=== PATIENT | male | born 1950 | race Caucasian/White ===

== ENCOUNTER 2020-04-02 12:37 | Observation (INO) | payer MEDICARE, SELFPAY ==
[2020-04-02] VITALS (21 sets, daily range): BP systolic 85–125; BP diastolic 56–107; PULSE 92–145; RESP 13–20; TEMP 36.2–36.7; O2SAT 97–100; BMI 23.1
--- NOTE | ~2020-04-02 | XR_ITS ---
EXAMINATION: XR chest 2V EXAM DATE: 04/02/2020 13:26 INDICATION: Palpitations, lightheadedness. TECHNIQUE: Frontal and lateral projections of the chest obtained and reviewed. There is no prior jose f dy for comparison. FINDINGS: Moderate hyperinflation. The lungs are clear. There are no pleural effusions. The cardiom ediastinal silhouette is within normal limits. There is no pneumothorax suspected. Patient has diff use idiopathic skeletal hyperostosis (DISH). IMPRESSION: 1. No acute cardiopulmonary findings. 2. Hyperinflation. Reviewed, dictated and finalized at location A. L PUNCH PRESS OPERATOR
--- NOTE | 2020-04-02 12:41 | ECG_ITS ---
Measurements Intervals [place] Rate: 114 P: [place]: 0 QRS: 56 QRSD: 85 T: 9 QT: 309 QTc: 426 Interpretive Statements ATRIAL FIBRILLATION WITH RAPID VENTRICULAR RESPONSE BORDERLINE ST ABNORMALITY- INFERIOR LEADS ABNORMAL ECG Electronically Signed On 04-02-2020 12:57:37 LINK MACHINE OPERATOR by Reji Alberto D.O.
--- NOTE | 2020-04-02 13:08 | ED.ARRPALP ---
HPI - Arrhythmia/Palpitations General Chief Complaint: Arrhythmia/Palpitations Stated Complaint: Rapid heart rate Time Seen by Provider: 04/02/20 12:54 History of Present Illness HPI narrative: Patient is a 69-year-old male who presents ER with sudden onset rapid heart rate. Began about an hour prior to arrival. Associate with lightheadedness. Has had intermittent episodes of this over the last year. He sees Dr. Goldstein with cardiology. He has had a Holter monitor and other testing performed without diagnosis. He takes metoprolol 25 mg daily. No recent increase in caffeine or other stimulants. No chest pain or chest pressure. No shortness of breath. Found to be in A. fib with RVR and by EMS. Related Data Home Medications Medication Instructions Recorded Confirmed naproxen sodium 220 mg tablet 220 mg PO BID PRN 10/23/19 12/12/19 aspirin [Aspir-81] 81 mg PO DAILY 04/02/20 metoprolol succinate 25 mg PO DAILY 04/02/20 Allergies Allergy/AdvReac Type Severity Reaction Status Date / Time No Known Allergies Allergy Verified 04/02/20 15:33 Review of Systems Review of Systems: All systems reviewed & are unremarkable except as noted in HPI and below Constitutional: Constitutional: Denies chills, Denies fever(s) and Denies weakness ENT: Denies nasal congestion and Denies sore throat Cardiovascular: Cardiovascular: Denies chest pain, Reports rapid heart rate and Denies radiating jaw, neck or arm pain Respiratory: Respiratory: Denies cough, Denies dyspnea and Denies wheezing Gastrointestinal: Gastrointestinal: Denies nausea and Denies vomiting Neurologic: Reports dizziness, Denies focal weakness and Denies numbness PMFSH Past Medical History Medical History (Updated 04/02/20 @ 15:34 by Williams Perea MD) Palpitations Family History Family History Father Cerebrovascular accident Family history of atrial fibrillation Mother Family history of atrial fibrillation Social History Social History Smoking status: Light tobacco smoker Alcohol intake: current Gender identity (if verbalized by the patient): Male Exam Narrative: Exam Narrative: GENERAL: Well-appearing, well-nourished, and in no acute distress. HEAD: Normocephalic, atraumatic. Eyes: EOMI CHEST: Clear to auscultation. No respiratory distress. HEART: Tachycardic with a regular regular rate and rhythm. Normal peripheral pulses. ABDOMEN: Soft, nontender, nondistended EXTREMITIES: Normal range of motion. No edema. SKIN: Warm, dry, no rash. NEURO: Alert and oriented x3. PSYCH: Normal mood and affect. Course Reevaluation(s) Reevaluation #1: Discussed case with Dr. Figueroa including episodes of hypotension. Most recent episode after receiving his diltiazem seems to is resolved and he is gone back up to 107/87 mmHg with a heart rate of [address] Figueroa recommends one oral dose of metoprolol 25 mg tartrate given the fact that he takes 25 mg of metoprolol succinate daily. She also recommends that the patient receive some Lovenox in case he needs to be cardioverted. Date: 04/02/20 Time: 14:17 Vital Signs Vital signs: Vital Signs Temperature 98.0 F 04/02/20 12:41 Pulse Rate 128 H 04/02/20 12:41 Respiratory Rate 16 04/02/20 12:41 Blood Pressure 118/68 04/02/20 12:41 Pulse Oximetry 100 04/02/20 12:41 Temperature 98.0 F 04/02/20 12:41 Pulse Rate 108 H 04/02/20 15:18 Respiratory Rate 13 04/02/20 15:18 Blood Pressure 123/71 04/02/20 15:18 Pulse Oximetry 98 04/02/20 15:18 MDM - Arrhythmia/Palpitations Lab Data Result diagrams: 04/02/20 13:08 04/02/20 13:08 Labs: Lab Results 04/02/20 04/02/20 04/02/20 Range/Units 13:08 13:08 13:08 WBC 8.0 (4.5-10.0) K/mm3 RBC 4.78 (4.6-6.20) M/mm3 Hgb 15.4 (14.0-18.0) g/dL Hct 45.2 (42.0-52.0) %
[2020-04-02 13:14] LABS: Basophils Percent Auto 0.2 % (0.2-1.2); Eosinophils Absolute Auto 0.1 K/mm3 (0-0.3); Eosinophils Percent Auto 0.9 % (0-4.4); Hematocrit 45.2 % (42.0-52.0); Hemoglobin 15.4 g/dL (14.0-18.0); Immature Granulocyte Absolute 0.03 K/mm3 (0.00-0.031); Immature Granulocyte Percent A 0.4 % (0-0.5); Lymphocytes Absolute Auto 1.32 K/mm3 (0.9-3.2); Lymphocytes Percent Auto 16.5 % (18.3-44.2); Mean Corpuscular HGB Conc 34.1 g/dl (32-36); Mean Corpuscular Hemoglobin 32.2 pg (26-34); Mean Corpuscular Volume 94.6 fl (80-100); Mean Platelet Volume 8.5 fl (7.4-10.4); Monocytes Absolute Auto 0.7 K/mm3 (0.1-0.6); Monocytes Percent Auto 8.2 % (2.6-8.5); Neutrophils Absolute Auto 5.9 K/mm3 (1.3-6.7); Neutrophils Percent Auto 73.8 % (45.5-73.1); Platelet Count Result 194 k/mm3 (150-375); Red Blood Count 4.78 M/mm3 (4.6-6.20); Red Cell Distribution Width 12.9 % (11.5-14.5)
[2020-04-02 13:25] LABS: Prothrombin Time 13.6 Seconds (11.1-14.7)
[2020-04-02 13:26] LABS: Partial Thromboplastin Time 29.1 SECONDS (22.3-36.8)
--- NOTE | 2020-04-02 13:27 | PC.NURSE ---
PT TO XRAY VIA STRETCHER, WILL RE EVAL BP PRIOR TO GIVING RX'D DILTIAZEM DUE TO LOW BP READINGS. EDP AWARE.
[2020-04-02 13:28] LABS: Anion Gap 2 mmol/L (8-16); Blood Urea Nitrogen 23 mg/dL (9-20); Calcium 9.6 mg/dL (8.4-10.2); Carbon Dioxide 32 mmol/L (22-30); Chloride 107 mmol/L (98-107); Estimated CRCL calculation 86 ml/min; Estimated Glomerular Filt Rate > 60; Glucose 106 mg/dL (75-110); Potassium 4.6 mmol/L (3.4-5.0); Sodium 141 mmol/L (137-145)
[2020-04-02] MEDS: dilTIAZem HCl INJ 25 MG/5 ML VIAL 10 MG IV PUSH (13:36)
[2020-04-02 13:53] LABS: Glucose Point of Care 102 (65-105)
[2020-04-02] MEDS: SODIUM CHLORIDE 0.9% IV 1,000 ML 999 ML IV CONT (14:07)
[2020-04-02] MEDS: METOPROLOL TARTRATE 25 MG TABLET PO (14:27)
[2020-04-02] MEDS: ENOXAPARIN 100 MG/ML SYRINGE 90 MG SUB-Q (14:27)
--- NOTE | 2020-04-02 14:34 | PC.NURSE ---
CALLED DIETARY AND ORDERED TRAY FOR PT AT THIS TIME, SPOKE TO JACK.
--- NOTE | 2020-04-02 15:38 | ADMGEN ---
This patient, Chidi Silverio, was admitted to IMU Room 202-. Patient/family oriented to hospital policies and general routines including ID bracelet, bed and alarms, visiting hours, pain management, procedures, bathroom and other care routines, personal items, smoking policy, room service/diet, and visiting hours. Information on how to activate the Rapid Response Team has been discussed. Patient/Family are encouraged to report perceived risks to care and to ask questions if they do not understand what they are told or what they should do.
--- NOTE | 2020-04-02 17:10 | PM.IMHP ---
H&P: HPI History of Present Illness Date/Time: 04/02/20 17:10 Chief Complaint: Presyncope, new onset atrial fibrillation RVR Narrative: Chidi Silverio is a 69 year old male followed by Dr. Goldstein with a history of syncope. He was admitted for AFib RVR. Mr. Silverio (pronouned Leona Ronquillo') has a history of 4 or 5 episodes of syncope and near syncope over the past few years. Echo showed normal LV function EF 61% with diastolic dysfunction. Thirty day monitoring showed an 8 beat run of SVT and a 7 beat run of ventricular tachycardia with rare APCs and PVCs. The stress echo was negative. He was just seen this morning by our nurse practitioner feeling well and, after discussion with Dr. Goldstein, recommended referral to EP doctor to assess the ventricular tachycardia. Later the patient suddenly became lightheaded, sweaty, his head felt heavy and he had dimness of vision and blurred vision. He did not feel any palpitations, chest pain or shortness of breath. However his Apple Watch that his heart rate was 173. He called an ambulance and on their arrival his blood pressure was 80/40 with a heart rate ranging 112-151 beats per minute. O2 sat was in the 90s. He was given a dose of IV diltiazem 10 mg in the ER but dropped his blood pressure in to the 80s again. He also had a small vagal episode when he had phlebotomy. (He reports that he always he is lightheaded and dizzy when he has his blood drawn.) He was given a Liter of IV fluids and a dose of metoprolol 25 mg p.o. as well as a dose of Lovenox. He reports he is feeling fine now at rest. The patient denies any history of bleeding or ulcers. He denies any sleep apnea or snoring. He drinks 2 alcoholic beverages a night. No thyroid disease. This presentation is similar to his prior episodes except he did not pass out with this 1 and it is lasting longer. Review of Systems Constitutional: Constitutional: Reports weakness ENT: Denies epistaxis and Denies nasal congestion Cardiovascular: Cardiovascular: Denies chest pain, Reports diaphoresis, Denies pedal edema, Reports lightheadedness and Denies palpitations Respiratory: Respiratory: Denies cough, Denies hemoptysis, Denies dyspnea and Denies wheezing Gastrointestinal: Gastrointestinal: Denies abdominal pain, Denies melena and Denies hematochezia Genitourinary: Genitourinary: Denies hematuria Musculoskeletal: Musculoskeletal: Reports arthralgias (Knee arthritis) Integumentary/Breasts: Skin/Breast: Denies dry skin Neurologic: Denies Abnormal speech present and Denies confusion Psychiatric: Psychiatric: Denies behavioral changes [facility] Past Medical History Medical History Palpitations Family History Family History (Updated 04/02/20 @ 17:27 by Sofy Figueroa MD) Father Cerebrovascular accident Family history of atrial fibrillation Natural of natural causes age 91. 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 , has 3 kids and 9 grandkids. One daughter is a nurse practitioner. Smoking status: Smoker, status unknown Tobacco type: cigars Alcohol intake: current Drinks per week: 8 Substance use: never Gender identity (if verbalized by the patient): Male Spiritual care concerns: No Meds Home Medications and Allergies Home Medications Medication Instructions Recorded Confirmed Type naproxen sodium 220 mg tablet 220 mg PO DAILY PRN 10/23/19 04/02/20 History aspirin [Aspir-81] 81 mg PO DAILY 04/02/20 04/02/20 History met
[2020-04-02] MEDS: METOPROLOL TARTRATE INJ 5 MG/5 ML VIAL IV PUSH (17:43)
[2020-04-02] MEDS: RIVAROXABAN 2.5 MG TABLET 5 MG PO (21:14)
[2020-04-02] MEDS: METOPROLOL TARTRATE 50 MG TAB PO (21:42)
[2020-04-03] VITALS (18 sets, daily range): BP systolic 85–121; BP diastolic 59–95; PULSE 54–138; RESP 10–21; TEMP 35.8–36.7; O2SAT 97–100
--- NOTE | 2020-04-03 | ECG_ITS ---
Measurements Intervals [place] Rate: 52 P: 44 [place]: 174 QRS: 47 QRSD: 87 T: 28 QT: 445 QTc: 414 Interpretive Statements SINUS BRADYCARDIA BORDERLINE ECG Electronically Signed On 04-04-2020 12:24:14 METAL MODEL MAKER by Reji Alberto D.O.
[2020-04-03] MEDS: METOPROLOL TARTRATE 50 MG TAB PO (09:26)
[2020-04-03] MEDS: RIVAROXABAN 2.5 MG TABLET 5 MG PO (09:26)
--- NOTE | 2020-04-03 11:38 | PC.NURSE ---
pt transferred to Chest pain center- for procedure - pt to remain in [facility] room 1 after procedure report given to Boris BELLO- transferred via bed - personal belongings with pt
--- NOTE | 2020-04-03 12:38 | WPDHPUPDATE1 ---
History and Physical Update Update Date/Time: 04/03/20 12:38 History and Physical has been reviewed, including an updated exam of the patient. Patient remains in atrial fibrillation; There are NO changes in the patient's condition. Risks, benefits, and alternatives have been discussed and questions answered. Risks of post cardioversion bradycardia/pauses and conscious sedation were reviewed. Patient agrees to proceed with procedure.
--- NOTE | 2020-04-03 12:39 | WPDMODSED ---
Moderate Sedation Note-Pt Data Patient Data Diagnosis: AFib RVR Present Complaint: Symptomatic atrial fibrillation which started yesterday, on anticoagulation Procedure to be performed/Plan: Conscious sedation and elective electrical cardioversion Allergies Allergy/AdvReac Type Severity Reaction Status Date / Time No Known Allergies Allergy Verified 04/02/20 15:33 Home Medications Medication Instructions Recorded Confirmed Type naproxen sodium 220 mg tablet 220 mg PO DAILY PRN 10/23/19 04/02/20 History aspirin [Aspir-81] 81 mg PO DAILY 04/02/20 04/02/20 History metoprolol succinate 25 mg PO Q12H 04/02/20 04/02/20 History Current Medications: Active Medications Acetaminophen (Acetaminophen 325 Mg Tablet) 650 mg PO Q4H PRN PRN Reason: Mild Pain (1-3) or Fever Hydrocodone Bitart/Acetaminophen (Hydrocodone/Acetaminophen (*Crx) 5-325 Mg Tablet) 1 tab PO Q4H PRN PRN Reason: Pain Rated 4-6 Al Hydrox/Mg Hydrox/Simethicone (Mag Hydrox/Al Hydrox/Simeth 30 Ml Udc) 30 ml PO QID PRN PRN Reason: Dyspepsia Metoprolol Tartrate (Metoprolol Tartrate Inj 5 Mg/5 Ml Vial) 5 mg IV PUSH Q4H PRN PRN Reason: Tachycardia Last Admin: 04/02/20 17:43 Dose: 5 mg Documented by: Metoprolol Tartrate (Metoprolol Tartrate 50 Mg Tab) 50 mg PO Q12HR [facility] Last Admin: 04/03/20 09:26 Dose: 50 mg Documented by: Morphine Sulfate (Morphine Sulfate (*Crx) 4 Mg/Ml Inj) 4 mg IV PUSH Q2H PRN PRN Reason: Pain Rated 7-10 Ondansetron HCl (Ondansetron Inj 4 Mg/2 Ml Vial) 4 mg IV PUSH Q4H PRN PRN Reason: Nausea Rivaroxaban (Rivaroxaban 2.5 Mg Tablet) 5 mg PO Q12HR [facility] Last Admin: 04/03/20 09:26 Dose: 5 mg Documented by: Sedation/Anesthesia: No previous sedation/anesthesia problems (including family history). [facility] Past Medical History Medical History Nonsustained ventricular tachycardia Palpitations Vasovagal episode Family History Family History Father Cerebrovascular accident Family history of atrial fibrillation Natural of natural causes age 91. 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 , has 3 kids and 9 grandkids. One daughter is a nurse practitioner. Smoking status: Smoker, status unknown Tobacco type: cigars Alcohol intake: current Drinks per week: 8 Substance use: never Gender identity (if verbalized by the patient): Male Spiritual care concerns: No Mod Sed Physical Exam Physical Exam Pre Procedural Exam: Normal: Appearance, Eyes, Ears, Nose, Neck, Throat, Airway, Lungs, Heart Size, Neuro Exam, Abdomen, Extremities and Skin and Variation: Heart Rate (Tachycardic) and Heart Rhythm (Irregular) Hours since solid foods: 12 Hours since liquid intake: 12 Internal Medicine - PN: Obj Da Vital Signs Vital Signs: Vital Signs - 24 hr 04/02/20 12:41 04/02/20 13:00 04/02/20 13:36 Temperature 98.0 F Pulse Rate 128 H 125 H Respiratory Rate 16 16 Blood Pressure 118/68 86/67 L 125/85 Pulse Oximetry 100 99 04/02/20 13:48 04/02/20 14:00 04/02/20 14:10 Temperature Pulse Rate 111 H Respiratory Rate 15 Blood Pressure 123/107 H 85/56 L 106/71 Pulse Oximetry 98 04/02/20 14:26 04/02/20 14:27 04/02/20 14:30 Temperature Pulse Rate 92 106 H Respiratory Rate 17 Blood Pressure 107/87 120/58 L Pulse Oximetry 100 04/02/20 14:50 04/02/20 15:18 04/02/20 15:39 Temperature 97.2 F L Pulse Rate 108 H 125 H Respiratory Rate 13 20 Blood Pressure 125/73 123/71 122/84 Pulse Oximetry 98 100 04/02/20 16:00 04/02/20 17:36 04/02/20 17:43 Temp
--- NOTE | 2020-04-03 13:24 | PM.OP ---
Procedure Note - Brief Procedure Note - Brief Date of procedure: 04/03/20 Pre-op diagnosis: afib rvr Post-op diagnosis: same Procedure performed: Conscious sedation and elective electrical cardioversion Description of procedure: Successful cardioversion to sinus bradycardia rate 55. Anesthesia: other (Conscious sedation) Surgeon: Sofy Figueroa MD Findings: Sinus bradycardia
--- NOTE | 2020-04-03 13:25 | PM.PROC ---
Procedure Note - Detailed Date of procedure: 04/03/20 Pre-op diagnosis: afib rvr Post-op diagnosis: same Procedure performed: Conscious sedation and elective electrical cardioversion Description of procedure: Conscious sedation: Assessment: The patient has no history of anesthesia problems. The patient's oropharynx is clear. The patient was deemed to be a good candidate for conscious sedation. The patient had continuous hemodynamic monitoring during the procedure. Start time: 13 11 Completion time: 13 17 Total conscious sedation time: 16 minutes Medications: Versed 2 mg, fentanyl 100 mcg IV push Trained observer: Nicolette Castillo Outcome: The patient tolerated the procedure well with no complications. Cardioversion: After informed consent and the above conscious sedation, the patient underwent elective electrical synchronized cardioversion with 150 joules of biphasic energy and converted to normal sinus rhythm rate in 50's. There were no complications. Plan: Discharge w/ anticoagulation. Continue usual dose of metoprolol 25 mg b.i.d. and add flecainide 50 mg b.i.d. to help maintain sinus rhythm. EKG in 1 week, follow up in the office in 6 weeks. Surgeon: Sofy Figueroa MD
--- NOTE | 2020-04-03 13:29 | PM.PROC ---
Procedure Note - Detailed Date of procedure: 04/03/20 Pre-op diagnosis: afib rvr Surgeon: Sofy Figueroa MD
--- NOTE | 2020-04-03 14:08 | PM.DS ---
DS: Admitting Diagnosis Admitting Diagnosis Admitting Diagnosis: Atrial fibrillation with a rapid ventricular response Lightheadedness DS: Discharge Diagnosis Discharge Diagnosis (1) Atrial fibrillation with RVR: Code(s): I48.91 - Unspecified atrial fibrillation Status: Acute Assessment and Plan: Patient has a history of spells of lightheadedness and syncope/presyncope, and was seeing Dr. Goldstein for this. Outpatient monitoring only showed 8 beats of SVT and 7 beats of VT. After he left our office yesterday morning he had another episode of lightheadedness, visual blurring, and diaphoresis and was found to be in AFib RVR when the EMS crew arrived, and was hypotensive with a blood pressure in the 80s. He was given diltiazem 10 mg IV push in the emergency room which helped minimally, but also caused hypotension. He was given a L of IV fluids and then an extra 25 mg of metoprolol p.o.. He was admitted and started on Xarelto as well as an increased dose of metoprolol. He remained in AFib RVR and underwent an unremarkable cardioversion to sinus bradycardia heart rate 55-60 on the day of discharge. Previous heart testing showed no evidence of CAD and normal LV function. I recommended the addition of antiarrhythmic, flecainide, 50 mg b.i.d. to his usual dose of metoprolol. Reviewed risks and benefits of antiarrhythmic therapy, also reviewed risks and benefits of anticoagulation. Patient was given 2 weeks of samples of Xarelto as well as a prescription and will follow-up in 1 week for an EKG and 6 weeks for an office visit. He will call if he has any dizziness, lightheadedness, palpitations etc.. (2) Hypotension: Code(s): I95.9 - Hypotension, unspecified Status: Acute Assessment and Plan: Transient hypotension when the ambulance arrived, and also when medications in the ER. SBP on discharge was 105-110/80 . (3) Vasovagal episode: Code(s): R55 - Syncope and collapse Status: Acute Assessment and Plan: Patient was noted to have a vasovagal episode when he had phlebotomy in the emergency room and admits that he has had problems with lightheadedness and dizziness whenever he gets blood drawn. Some of his problems may be vasovagal syncope. DS: Summary Hospital Course Hospital Course: Started on anticoagulation and underwent successful elective cardioversion on 03/03/2021. Time Spent with Patient Time attestation: Total time spent providing and/or coordinating discharge services:30 minutes Exam Const: General: comfortable and no acute distress Limitations: no limitations HENMT: Mouth: Yes moist mucous membranes Neck: Neck: supple Thyroid: thyroid normal Lymphatic: lymphadenopathy not noted Resp: Effort & Inspection: normal respiratory effort Auscultation: clear to auscultation bilaterally Cardio: Rate: regular rate Rhythm: regular rhythm Heart sounds: no murmurs GI: Inspection: non-distended GI Palp: Yes Soft to palpation and No Firmness to palpation present (GI) Skin: General skin exam: normal color and no rashes or lesions noted Neuro: Motor exam (neuro): 5/5 motor strength present throughout and Normal motor muscle tone present throughout Extrem: General: no edema Psych: Mental Status: mental status grossly normal Affect: normal affect DS: Data Data Completed and Pending Labs on day of discharge: Labs from last 24 hours 04/02/20 13:07 TSH (Reflex) 1.460 Discharge Plan Discharge Attending physician on discharge: Sofy Figueroa Discharging Clinician: Sofy Figueroa Anticipated Discharge Date/Time: 04/03/20 14:30 Patient Disposition: Home, Self-Care Activity: unlimited Diet: heart healthy Discharge Instructions: Some new medications: Xarelto is an anticoagulant to help prevent blood clots and strokes. If it is very expensive, p
--- NOTE | 2020-04-03 15:16 | SUR.PHASEII ---
Pt discharged to home via wheelchair via private vehicle. Discharge instructions reviewed with patient with stated understanding. Discharge packet sent with patient, including a list of new prescriptions to start. Pt tolerated Heart Healthy diet well. IV D/c'd. Up ambulating in room, gait steady, and without any concerns.
== END 2020-04-03 15:25 | disposition home or self-care (01) ==
LOC: ANHED 13:00 → ANHIMU 14:42 → ANHCPC 04-03 12:00
PROVIDERS: Internal Medicine Cardiovascular Disease; Admitting Provider Internal Medicine; Emergency Provider Emergency Medicine; PCP Family Medicine; Visit Provider Internal Medicine
PROC: 5A2204Z Restoration of Cardiac Rhythm, Single (ICD-10-PCS; principal; 2020-04-03 13:00)
DX: I48.91 Unspecified atrial fibrillation (principal); I95.9 Hypotension, unspecified; R55 Syncope and collapse; I47.2 Ventricular tachycardia
CPT/HCPCS: 36415; 71046; 80048; 84443; 85025; 85610; 85730; 92960; 93005; 96361; 96372; 96374; 96376; 99285; A9270; G0378; J1650; J2250; J3010; J7030; J7040

== ENCOUNTER → 2020-06-14 04:59 | Outpatient (CLI) | payer MEDICARE, SELFPAY ==
[2020-06-14 19:22] LABS: SARS-CoV-2 RNA PCR Negative
== END ==
PROVIDERS: PCP Family Medicine; Visit Provider Internal Medicine Cardiovascular Disease
DX: Z01.812 Encounter for preprocedural laboratory examination (principal); Z20.822 Contact with and (suspected) exposure to COVID-19
CPT/HCPCS: C9803; U0003; U0005

== ENCOUNTER 2020-06-17 01:09 | Day surgery (SDC) | payer MEDICARE, SELFPAY ==
[2020-06-14 16:34] VITALS: BMI 23.1
[2020-06-17 13:15] VITALS: BP 107/71; PULSE 48; RESP 12; TEMP 36.6; O2SAT 99
--- NOTE | 2020-06-17 14:22 | P.SEDATION_ITS ---
Moderate Sedation Note-Pt Data Patient Data Diagnosis: Syncope, atrial fibrillation Present Complaint: None History and physical update: Pleasant 69-year-old male followed by Dr. Goldstein as an outpatient with a history of syncope and atrial fibrillation recurred for reported implantation further elucidation as to the etiology of his syncope and atrial fibrillation burden monitoring. He has held Xarelto for the past 2 days in anticipation for this procedure. Impression/plan of care: History of syncope and atrial fibrillation-loop recorder implantation to document AFib burden and further clarification for etiology of syncope. Procedure to be performed/Plan: Loop recorder implantation Allergies Allergy/AdvReac Type Severity Reaction Status Date / Time No Known Allergies Allergy Verified 06/17/20 13:22 Home Medications Medication Instructions Recorded Confirmed Type metoprolol succinate 25 mg PO Q12H 04/02/20 06/17/20 History flecainide 50 mg PO Q12H #60 tablet 04/03/20 06/17/20 Rx rivaroxaban [Xarelto] 20 mg PO QPM #30 tablet 04/03/20 06/14/20 Rx Current Medications: See list Sedation/Anesthesia: No previous sedation/anesthesia problems (including family history). [facility] Past Medical History Medical History Nonsustained ventricular tachycardia Palpitations Vasovagal episode Family History Family History Father Cerebrovascular accident Family history of atrial fibrillation Natural of natural causes age 91. 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 , has 3 kids and 9 grandkids. One daughter is a nurse practitioner. Smoking status: Never smoker Tobacco type: cigars Second hand tobacco smoke exposure: No Alcohol intake: former Drinks per week: 8 Substance use: never Living arrangements: with family Gender identity (if verbalized by the patient): Male Spiritual care concerns: No Mod Sed Physical Exam Physical Exam Pre Procedural Exam: Normal: Appearance, Eyes, Ears, Nose, Neck, Throat, Airway, Lungs, Heart Size, Heart Rate, Heart Rhythm, Neuro Exam, Abdomen, Liver, Ki dneys, Extremities and Skin Hours since solid foods: 12 Hours since liquid intake: 12 Internal Medicine - PN: Obj Da Vital Signs Vital Signs: Vital Signs - 24 hr 06/17/20 13:15 Temperature 36.6 C Pulse Rate 48 L Respiratory Rate 12 Blood Pressure 107/71 Pulse Oximetry 99 ASA Classification/Sedation ASA Classification/Sedation ASA Class: III Emergent: No Risks: Conscious sedation was not utilized local subcutaneous lidocaine only.
--- NOTE | 2020-06-17 14:25 | P.OP_ITS ---
Procedure Note - Detailed Date of procedure: 06/17/20 Pre-op diagnosis: syncope Atrial fibrillation Post-op diagnosis: same (Syncope, atrial fibrillation) Procedure performed: Loop recorder implantation Description of procedure: Brief history present illness: Patient is a very pleasant 69-year-old male with atrial fibrillation and syncope referred for loop recorder implantation. After verbal and written informed consent was obtained from the patient risks, benefits, and alternatives explained in detail the patient agreed to proceed with the plan of care as outlined above. Patient was evaluated at bedside in [facility] procedure room. Patient was placed the appropriate supine position. Left anterior chest wall was prepped and draped in the usual sterile fashion. Operators in appropriate sterile garb. The left 4th intercostal space was identified and marked. Utilizing approximately 18 cc of 1% subcutaneous lidocaine the left anterior chest wall was then locally anesthetized. After local anesthesia was achieved, 2 fingerbreadths left of the sternum at the 4th intercostal space was again identified and a 1 cm incision was made with the included skin punch tool. Following this with the included introducer, a tract was made subcutaneously at a 45 degree angle from the sternum. The introducer was then inverted 180 degrees and with the included plunger the [employer]onic REVEAL LINQ loop recorder was advanced subcutaneously into position easily and without complication. The plunger was then removed followed by the introducer. Manual pressure was held for least 5-10 min with excellent hemostasis. The device was then interrogated and revealed excellent fidelity and measured at 0.8-0.9 mV. The Med[employer]onic REVEAL LINQ SN [id number] was implanted without complication. The incision was then approximated and closed using The incision was then covered with a sterile dressing. Anesthesia: local Surgeon: Mello Urrutia MD Drains: No Packing: No Pathology: none sent Complications: No immediate complications Condition: stable Disposition: same day Findings: Successful implantation of Medtronic Reveal LINQ without complication. Resume Xarelto in 3 days post discharge.
--- NOTE | 2020-06-17 14:29 | P.DS_ITS ---
DS: Admitting Diagnosis Admitting Diagnosis Admitting Diagnosis: Syncope, atrial fibrillation loop recorder implantation DS: Discharge Diagnosis Discharge Diagnosis (1) Atrial fibrillation with RVR: Code(s): I48.91 - Unspecified atrial fibrillation Status: Acute (2) Syncope: Code(s): R55 - Syncope and collapse Status: Acute DS: Summary Hospital Course Hospital Course: Patient brought in as outpatient for same-day proceed with loop recorder implantation. No complications with implantation. Please see procedure note for further details. Time Spent with Patient Time attestation: Total time spent providing and/or coordinating discharge services: 25 minutes Discharge Plan Discharge Patient Disposition: Home, Self-Care Discharge Instructions: Activity restrictions post loop recorder implant: No excessive lifting left arm above head for 1 week. Wound care post loop recorder implant: Keep incision dry. Keep the incision covered with bandage for 3 days. Do not attempt to remove Steri-Strips, they will fall off (if applicable). Observe for redness, drainage, swelling, and/or bleeding. May shower with waterproof covering over incision site. After your 1 week incision check in the office do not rub or scrub the incision. May pat dry after shower. No lotions, powders, creams, or appointments to be applied to the incision. May resume Xarelto on 06/20/20 Patient Instructions: Cardiac Loop Recorder Insertion (DC) Stand Alone Forms: General Discharge Instructions Follow-up/Referrals: Brett Goldstein MD [Physician] - Keep Reg. Scheduled Appt. (Follow-up with 1 week wound check in the [facility] [place] office as scheduled. Appointment with Dr. Goldstein August 26 at 10:30 a.m. previously scheduled.) Discharge Medications: No Action metoprolol succinate 25 mg Capsule,Sprinkle,Er 24hr 25 mg PO Q12H RF: 0 flecainide 50 mg tablet 50 mg PO Q12H Qty: 60 RF: 5 Xarelto 20 mg tablet 20 mg PO QPM Qty: 30 RF: 5
[2020-06-17 15:15] VITALS: BP 103/68; PULSE 48; RESP 12; TEMP 36.9; O2SAT 98
== END 2020-06-17 15:25 | disposition home or self-care (01) ==
PROVIDERS: PCP Family Medicine; Visit Provider Internal Medicine Cardiovascular Disease
PROC: (CPT 33285; principal; 2020-06-17 13:30)
DX: I48.91 Unspecified atrial fibrillation (principal); R55 Syncope and collapse; Z79.01 Long term (current) use of anticoagulants
CPT/HCPCS: 33285; C1764

== ENCOUNTER → 2023-11-29 11:21 | Outpatient (REF) | payer MEDICARE, SELFPAY | LOC: ANHLAB 11:21 | PROVIDERS: PCP Family Medicine; Visit Provider Plastic Surgery | DX: L72.3 Sebaceous cyst (principal) | CPT/HCPCS: 88305 ==